=== PATIENT | female | born 1970 | race Hispanic/Latino ===

== ENCOUNTER 2025-03-12 08:58 | Emergency (ER) | payer OTHER ==
--- OUTSIDE RECORDS SUMMARY | 2025-03-12 09:00 | XMS REPORT | Continuity of Care Document ---
Author Name Unknown Address [address] [facility]. [address] [place] [address] [facility] Address [address] [facility] [address] [place] [address] Care Team Providers Care Inside Sales Agent Name Role Phone Unknown, Physician Primary Care Physician DIMPLE Wilkes Attending Clinician Unavaila ble LucianoSamira wolfe Attending Clinician Unavailable SILAPUNTYURIY Attending Clinician Unavailabl e Mtz RTMartha Attending Clinician Unavailable JETTY, ALIA GENAO Attending Clinician Unavailabl e JETTY, ALIA GENAO Attending Clinician Unavailabl e BHAVIKLEYLA PATRICIA Attending Clinician Unavailabl e Payers Payer Name Policy Type Policy Number Effective Date Expirati on Date Source [employer] PPO AND OUT OF STATE [id number] 2020 00:00:00 [facility] 6 [id number] 2020 00:00:00 [facility] Problems Condition Name Condition Details Condition Category Status Onset Date Resolution Date Last Treatment Date Treating Clinician Comments Source MILAGROS (obstructi ve sleep apnea) MILAGROS (obstructi ve sleep apnea) Disease Active 01-06 00:00: 00 [facility] [id number] Non-season al allergic rhinitis due to pollen Problem [facility] [id number] Moderate major depression Problem [facility] [id number] Calculus of gallbladde r without cholecysti tis without obstructio n Problem [facility] [id number] Hepatic steatosis Problem [facility] Allergies, Adverse Reactions, Alerts Allergy Name Allergy Type Status Severity Reaction(s) Onset Date Inactive Date Treating Clinician Comments Source NO KNOWN ALLERGIE S Drug Class Active [facility] Social History Social Habit Start Date Stop Date Quantity Comments Source History SDOH Alcohol Frequency HI Health History SDOH Alcohol Std Drinks [facility] History of Tobacco Use [facility] History SDOH Alcohol Binge [facility] Possible [facility] History of Social function 2023-12-25 00:00:00 2023-12-25 00:00:00 [facility] Alcohol Comment 2021-12-16 00:00:00 2021-12-16 00:00:00 rare [facility] Tobacco use and exposure 2021-12-16 00:00:00 2021-12-16 00:00:00 Smokeless tobacco non-user [facility] Alcohol intake 2021-12-16 00:00:00 2021-12-16 00:00:00 Current drinker of alcohol (finding) [facility] Sex assigned at 1970 00:00:00 1970 00:00:00 [facility] Smoking Status Start Date Stop Date Source Tobacco smoking consumption unknown [facility] Never smoked tobacco [facility] Medications Ordered Medication Name Filled Medication Name Start Date Stop Date Current Medication? Ordering Clinician Indication Dosage Frequency Signature (SIG) Comments Components Source ketoconazol e (NIZOral) 2 % shampoo 12-16 00:00: 00 Yes [id number] Medicated shampoo. Use three times a week. Leather, leave on for 5 minutes, then rinse. Follow up with an anti-dandr uff conditione r [facility] metroNIDAZO LE (Metrogel) 0.75 % gel 12-16 00:00: 00 Yes [id number] Apply to the face 2 times a day, to help with rosacea. [facility] Toradol (Ketorolac) Toradol (Ketorolac) 24 00:00: [address] [facility] Toradol (Ketorolac) Toradol (Ketorolac) 12-06 00:00: 00 No 60mg [facility] Naproxen 500 MG Naproxen 500 MG 12-06 00:00: 00 No BID Naproxen 500 MG tiZANidine HCl 4 MG tiZANidine HCl 4 MG 12-06 00:00: 00 12-20 00:00 :00 No 1{table t_as_ne eded} tiZANidine HCl 4 MG Tylenol Tylenol No Tylenol Xyzal Allergy 24HR 5 MG Xyzal Allergy 24HR 5 MG No 1{table t_in_ e_eveni ng} QD Xyzal Allergy 24HR 5 MG Cephalexin 500 MG Cephalexin 500 MG No 1{capsu le} QID Cephalexin 500 MG Naproxen 500 MG Naproxen 500 MG No BID Naproxen 500 MG Vitamin B-12 Vitamin B-12 No Vitamin B-12 Cephalexin 500 MG Cephalexin 500 MG No 1{capsu le} QID Cephalexin 500 MG Naproxen 500 MG Naproxen 500 MG No BID Naproxen 500 MG Xyzal Allergy 24HR 5 MG Xyzal Allergy 24HR 5 MG No 1{table t_in_th e_eveni ng} QD Xyzal Allergy 24HR 5 MG Xyzal Allergy 24HR 5 MG Xyzal Allergy 24HR 5 MG No 1{table t_in_ e_eveni ng} QD Xyzal Allergy 24HR 5 MG Sudafed Sudafed No Sudafed Nitrofurant oin Monohyd Macro 100 MG Nitrofurant oin Monohyd Macro 100 MG No QD Nitrofuran toin Monohyd Macro 100 MG Cephalexin 500 MG Cephalexin 500 MG No 1{capsu le} QID Cephalexin 500 MG Phenazopyri dine HCl 200 MG Phenazopyri dine HCl 200 MG No 1{table t_after _meals} TID Phenazopyr idine HCl 200 MG Vital Signs Vital Name Observation Time Observation Value Comments S diony Systolic blood pressure 2023-12-25 18:48:00 125 mm[Hg] [facility] Diastolic blood pressure 2023-12-25 18:48:00 68 mm[Hg] [facility] Heart rate 2023-12-25 18:48:00 86 [facility] 2023-12-25 18:48:00 16 /min [facility] Body height 2023-12-25 18:48:00 165.1 cm [facility] Body weight 2023-12-25 18:48:00 106.142 kg [facility] BMI 2023-12-25 18:48:00 38.94 kg/m2 [facility] Oxygen saturation in Arterial blood by Pulse oximetry 2023-12-25 18:48:00 95 /min [facility] height 2021-12-27 14:40:00 65 [in_i] Commo n [facility] weight 2021-12-27 14:40:00 233.6 [lb_av] Co [facility] temperature 2021-12-27 14:40:00 98.4 [degF] Com [facility] bmi 2021-12-27 14:40:00 38.87 kg/m2 Comm on [facility] oximetry 2021-12-27 14:40:00 95 % Commo n [facility] respiratory rate 2021-12-27 14:40:00 18 /min [facility] blood pressure systolic 2021-12-27 14:40:00 128 mm[Hg] [facility] blood pressure diastolic 2021-12-27 14:40:00 70 mm[Hg] [facility] height 2021-12-21 15:00:00 65 [in_i] Commo n [facility] weight 2021-12-21 15:00:00 235.4 [lb_av] Co [facility] temperature 2021-12-21 15:00:00 97.8 [degF] Com [facility] bmi 2021-12-21 15:00:00 39.17 kg/m2 Comm on [facility] oximetry 2021-12-21 15:00:00 98 % Commo n [facility] respiratory rate 2021-12-21 15:00:00 18 /min Common [facility] blood pressure systolic 2021-12-21 15:00:00 134 mm[Hg] [facility] blood pressure diastolic 2021-12-21 15:00:00 78 mm[Hg] [facility] height 2021-12-06 15:00:00 65 [in_i] Commo n [facility] weight 2021-12-06 15:00:00 235 [lb_av] Comm on [facility] temperature 2021-12-06 15:00:00 97.2 [degF] Com mon [facility] bmi 2021-12-06 15:00:00 39.1 kg/m2 Commo n [facility] oximetry 2021-12-06 15:00:00 98 % Commo n [facility] respiratory rate 2021-12-06 15:00:00 18 /min Common [facility] blood pressure systolic 2021-12-06 15:00:00 138 mm[Hg] [facility] blood pressure diastolic 2021-12-06 15:00:00 84 mm[Hg] [facility] height 2021-11-09 15:00:00 65 [in_i] Commo n [facility] weight 2021-11-09 15:00:00 233.6 [lb_av] Co mmon [facility] temperature 2021-11-09 15:00:00 98.1 [degF] Com mon [facility] bmi 2021-11-09 15:00:00 38.87 kg/m2 Comm on [facility] oximetry 2021-11-09 15:00:00 98 % Commo n [facility] respiratory rate 2021-11-09 15:00:00 16 /min Common [facility] blood pressure systolic 2021-11-09 15:00:00 136 mm[Hg] [facility] blood pressure diastolic 2021-11-09 15:00:00 82 mm[Hg] [facility] Encounters Start Date/Time End Date/Time Encounter Type Admission Type Attending [facility] Care Department Encounter ID Source 2022-02-10 11:05:22 Outpatient [facility] [id number] [facility] 2022-02-01 11:12:20 Outpatient DIMPLE VASQUEZ [facility] [id number] [facility] 2022-01-18 10:09:04 Outpatient Samira Luciano [facility] [id number] [facility] 2021-12-16 13:50:50 Outpatient YURIY EWING [facility] [id number] [facility] 2021-12-07 13:01:02 Outpatient Samira Luciano [facility] [id number] [facility] 2021-11-18 13:32:02 Outpatient Samira Luciano [facility] [id number] [facility] 2021-11-08 15:40:04 Outpatient Samira Luciano [facility] [id number] [facility] 2021-10-10 16:24:20 Outpatient DIMPLE VASQUEZ [facility] [id number] [facility] 2025-02-24 00:00:00 2025-02-24 15:08:46 Telephone Martha Mtz Lacey E [facility] [id number] [facility] 2024-03-05 14:00:00 2024-03-05 14:00:00 Outpatient ALIA CRESPO [facility] [id number] [facility] 2023-12-25 16:00:00 2023-12-25 16:00:00 Office Visit Alia Hawkins [facility] [id number] [facility] 2023-12-25 16:00:00 2023-12-25 15:59:51 Outpatient R ALIA HAWKINS [facility] [id number] [facility] 2023-10-24 00:00:00 2023-10-24 00:00:00 Telephone Alia Hawkins [facility] OFF[facility] [id number] [facility] 2022-06-22 00:00:00 2022-06-22 00:00:00 (TEL) [facility] [id number] [facility] 2022-02-22 00:00:00 2022-02-22 00:00:00 (TEL) [facility] [id number] [facility] 2022-02-17 00:00:00 2022-02-17 00:00:00 (TEL) [facility]C [facility] [id number] [facility] 2021-12-27 00:00:00 2021-12-27 00:00:00 OFFICE VISIT EST PT LEVEL [id number] [facility] 2021-12-21 00:00:00 2021-12-21 00:00:00 PREV VISIT EST AGE 40-64 [facility] [id number] [facility] 2021-12-16 14:30:00 2021-12-16 14:54:03 Office Visit [place]uriy E[place] [facility] [id number] [facility] 2021-12-06 00:00:00 2021-12-06 00:00:00 OFFICE VISIT ESTAB PT LEVEL 4 [facility] [id number] [facility] 2021-11-09 00:00:00 2021-11-09 00:00:00 OFFICE VISIT NEW PT LEVEL 4 [facility] [id number] [facility] 2021-03-14 14:15:00 2021-03-14 14:15:00 Outpatient Kamille WRIGHTEEKRISTINEY [facility] [id number] [facility] Notes Date/Time Note Provider Source 2025-02-24 12:23:50 Mrs. Estevez called the pulmonary rehab with question regarding her CPAP supplies. She was seen by Alia Hawkins 12/2023 and she would like someone from the pulmonary clinic to call her and assist her because the company who has her replacement supplies stated that they are not able to provide them to her and she needs to contact her provider. I provided patient with contact number for pulmonary clinic and let her know that I would notify them of this call. Thanks! Martha Martha Mtz RT [facility] 2023-10-24 12:43:57 Patient requested new sleep apnea appointment. States she has a device but it has not been calibrated in a while. She wants to come the same day as daughter and . Scheduled for 12.25.23. Instructed to bring device. [facility] 2023-10-24 12:41:33 Patient requested new sleep apnea appointment. States she has a device but it has not been calibrated in a while. She wants to come the same day as daughter and . Scheduled for 12.25.23. Instructed to bring device. [facility]
[2025-03-12 09:40] LABS: Influenza A Ag Negative; Influenza B Ag Negative; SARS-CoV-2 Antigen Rapid Res Negative (Negative)
[2025-03-12 10:48] LABS: Urine Culture Reflex Order NOT NEEDED; Urine Microscopic Reflex YN ORDER UMIC
[2025-03-12 10:49] LABS: Sqamous Epithelial <5 /HPF (None Seen)
--- NOTE | 2025-03-12 10:50 | ER ---
Nurse's Notes [facility] Name: Shreay Moreno Age: 54 yrs Sex: Female : 1970 Arrival Date: 03/12/2025 Time: 08:58 Bed 11 Private MD: Diagnosis: Low back pain Presentation: 03/12 09:23 Chief complaint: Patient states: low back pain x 1 month, hx of previous UTI. Cough/ ss congestion x 1 day. is COVID positive. Coronavirus screen: Client denies travel out of the [place] in the last 14 days. Ebola Screen: Patient denies exposure to infectious person. Patient denies travel to an Ebola-affected area in the 21 days before illness onset. Initial Sepsis Screen: Does the patient meet any 2 criteria? No. Patient's initial sepsis screen is negative. Does the patient have a suspected source of infection? No. Patient's initial sepsis screen is negative. Risk Assessment: Do you want to hurt yourself or someone else? Patient reports no desire to harm self or others. Onset of symptoms was March 11, 2025. 09:23 Method Of Arrival: Ambulatory 09:23 Acuity: LUCIA 3 ss Historical: - Allergies: 09:26 PENICILLINS; ss - Home Meds: 09:26 None [Active]; ss - PMHx: 09:26 None; ss - PSHx: 09:26 None; ss - Infectious Disease History:: Denies. - Social history:: Smoking status: Patient denies any tobacco usage or history of. Screenin:02 Abuse screen: Denies threats or abuse. Denies injuries from another. Nutritional ss screening: No deficits noted. Tuberculosis screening: Never had TB. Assessment: 11:02 Reassessment: Patient appears in no apparent distress at this time. Patient and/or ss family updated on plan of care and expected duration. Pain level reassessed. Patient is alert, oriented x 3, equal unlabored respirations, skin warm/dry/pink. Vital Signs: 09:23 BP 140 / 83; Pulse 68; Resp 18; Temp 98.4; Pulse Ox 98% ; Weight 108.86 kg; Height 5 ss ft. 4 in. ; 09:23 Body Mass Index 41.20 (108.86 kg, 162.56 cm) ED Course: 09:01 Patient arrived in ED. mr 09:01 Dioni Durand FNP-C [facility]. [facility] 09:01 Madi Hodge MD is Attending Physician. dr5 09:26 Triage completed. ss 09:26 Arm band placed on right wrist. ss 10:08 Chest Single View XRAY In Process Unspecified. EDMS 10:33 UA Rfx Kenn Cult if indicated Sent. iw 11:02 Tere Salazar, RN is Primary Nurse. ss 11:02 Patient has correct armband on for positive identification. ss 11:02 No provider procedures requiring assistance completed. Patient did not have IV access ss during this emergency room visit. Administered Medications: No medications were administered Medication: 11:02 VIS not applicable for this client. ss Outcome: 10:50 Discharge ordered by . dr5 11:02 Discharged to home ambulatory, ss 11:02 Condition: good 11:02 Discharge instructions given to patient, Instructed on discharge instructions, follow up and referral plans. medication usage, Demonstrated understanding of instructions, follow-up care, medications, Prescriptions given X 2, 11:02 Patient left the ED. ss Signatures: Dispatcher [employer] EDMO Amanda Conner, Reg Reg Caryn Mullen RN RN Tere Salazar, REBECCA RN Dioni Durand FNP-C FNP-Cdr5
--- NOTE | 2025-03-12 10:50 | EDPHYS ---
Physician Documentation [facility] Name: Shreya Moreno Age: 54 yrs Sex: Female : 1970 Arrival Date: 03/12/2025 Time: 08:58 Bed 11 Private MD: ED Physician Madi Hodge HPI: 03/12 09:18 This 54 yrs old Female presents to ER via Unassigned with complaints of Covid dr5 Test. 09:18 Onset: The symptoms/episode began/occurred acutely. 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 Patient reports that she has recently treated for urinary tract infection. Patient states that she is in the hospital currently with her who is positive for COVID. Patient reports that she needs a COVID test prior to return to work. Patient denies chest pain, shortness of breath, nausea, vomiting or diarrhea.. Historical: - Allergies: : PENICILLINS; ss - Home Meds: :26 None [Active]; ss - PMHx: :26 None; ss - PSHx: 09:26 None; ss - Infectious Disease History:: Denies. - Social history:: Smoking status: Patient denies any tobacco usage or history of. ROS: 09:18 Constitutional: as per hpi dr5 Exam: 09:18 Constitutional: This is a well developed, well nourished patient who is awake, alert, dr5 and in no acute distress. Head/Face: Normocephalic, atraumatic. Eyes: Pupils equal round and reactive to light, extra-ocular motions intact. Lids and lashes normal. Conjunctiva and sclera are non-icteric and not injected. Cornea within normal limits. Periorbital areas with no swelling, redness, or edema. Neck: Trachea midline, no thyromegaly or masses palpated, and no cervical lymphadenopathy. Supple, full range of motion without nuchal rigidity, or vertebral point tenderness. No Meningismus. Chest/axilla: Normal chest wall appearance and motion. Nontender with no deformity. No lesions are appreciated. Cardiovascular: Regular rate and rhythm with a normal S1 and S2. Normal PMI, no JVD. No pulse deficits. Respiratory: Lungs have equal breath sounds bilaterally, clear to auscultation. No rales, rhonchi or wheezes noted. No increased work of breathing, no retractions or nasal flaring. Back: No spinal tenderness. No costovertebral tenderness. Full range of motion. Skin: Warm, dry with normal turgor. Normal color with no rashes, no lesions, and no evidence of cellulitis. MS/ Extremity: Pulses equal, no cyanosis. Neurovascular intact. Full, normal range of motion. Neuro: Awake and alert, GCS 15, oriented to person, place, time, and situation. Cranial nerves II-XII grossly intact. Motor strength 5/5 in all extremities. Sensory grossly intact. Cerebellar exam normal. Normal gait. Vital Signs: 09:23 BP 140 / 83; Pulse 68; Resp 18; Temp 98.4; Pulse Ox 98% ; Weight 108.86 kg; Height 5 ss ft. 4 in. ; 09:23 Body Mass Index 41.20 (108.86 kg, 162.56 cm) ss MDM: 09:01 Medical Screening Exam initiated dr5 09:25 ED course: Will check urine for urinary tract infection, get COVID test, and chest dr5 x-ray to rule out pneumonia. 10:50 Differential Diagnosis flu, Pneumonia, COVID, UTI. Data reviewed: vital signs, nurses dr5 notes, lab test result(s), urinalysis, bacteruria, radiologic studies, plain films. Consideration of Admission/Observation Escalation of care including admission/observation considered. Escalation considered if patient found to be COVID with supplemental oxygen. Care significantly affected by the following Social Determinants of Health: Poor access to healthcare and/or lack of insurance, Poor access to transportation, Problems related to employment. Counseling: I had a detailed discussion with the patient and/or guardian regarding the historical points, exam findings, and any diagnostic results supporting the discharge/admit diagnosis, the presence of at least one elevated blood pressure reading (>120/80) during this emergency department visit, lab results, radiology results, the need for outpatient follow up, for definitive care, a family practitioner, to return to the emergency department if symptoms worsen or persist or if there are any questions or concerns that arise at home. Special discussion: I have referred the patient to see his PCP for further evaluation of high blood pressure. I discussed with the patient/guardian in detail that at this point there is no indication for admission to the hospital. It is understood, however, that if the symptoms persist or worsen the patient needs to return immediately for re-evaluation. Based on the history and exam findings, there is no indication for further emergent testing or inpatient evaluation. I discussed with the patient/guardian the need to see the primary care provider for further evaluation of the symptoms. ED course: UA did not reveal urinary tract infection. COVID-negative. Will give short course of steroids and muscle accident with low back pain. Chest x-ray negative. All question answered. Strict ER precautions given.. 03/12 09:01 Order name: COVID-19 Ag + Flu A+B Ag; Complete Time: 09:41 dr5 03/12 09:17 Order name: UA Rfx Kenn Cult if indicated; Complete Time: 10:49 dr5 03/12 09:16 Order name: Chest Single View XRAY dr5 Administered Medications: No medications were administered Disposition Summary: 03/12/25 10:50 Discharge Ordered Notes: Location: Home dr5 Condition: Stable dr5 Diagnosis - Low back pain dr5 Followup: dr5 - With: Emergency Department - When: As needed - Reason: Worsening of condition Followup: dr5 - With: Private Physician - When: 1 - 2 days - Reason: Recheck today's complaints, Continuance of care, Re-evaluation by your physician Discharge Instructions: - Discharge Summary Sheet dr5 - Chronic Back Pain dr5 Forms: - Work release form dr5 - Medication Reconciliation Form dr5 - Patient Portal Instructions dr5 - Leadership Thank You Letter dr5 Prescriptions: - Cyclobenzaprine 10 mg Oral Tablet - take 1 tablet ORAL route every 8 hours As needed; 30 tablet; Refills: 0, dr5 Product Selection Permitted - Medrol (Saravanan) 4 mg Oral Tablets, Dose Pack - take 1 tablet ORAL route as directed - follow package instructions; 1 packet; dr5 Refills: 0, Product Selection Permitted Addendum: 03/13/2025 13:31 Co-signature as Attending Physician, Madi Hodge MD I agree with the assessment and c gunter plan of care. Signatures: Dispatcher [employer] EDMadi Ceja MD MD cha Blanchard, Shelby, REBECCA RN ss Dioni Durand, HUMIDIFIER MAINTENANCE WORKER-C HUMIDIFIER MAINTENANCE WORKER-Cdr5 Corrections: (The following items were deleted from the chart) 03/12 09:02 09:02 COVID-19 Ag + Flu A+B Ag+I.LAB.BRZ ordered. [facility]
--- NOTE | 2025-03-12 11:05 | RAD REPORT ---
EXAMINATION: ONE VIEW CHEST XR CLINICAL INDICATION: Female, 54 years old.,Cough;Congestion TECHNIQUE: Frontal chest projection is submitted. Examination is limited by patient positioning and t echnique. COMPARISON: No prior exam. FINDINGS: The lungs are well inflated and clear. No pneumothorax or sizable effusion. The heart is normal in s ize. Mediastinal contours are unremarkable. IMPRESSION: No acute intrathoracic abnormalities.
[2025-03-12 17:47] VITALS: BP 140/83; TEMP 98.4; O2SAT 98
== END 2025-03-12 11:02 | disposition home or self-care (01) ==
LOC: ER 08:58
DX: M54.50 Low back pain, unspecified (principal); Z11.52 Encounter for screening for COVID-19
CPT/HCPCS: 36415; 71045; 81001; 87428; 99283